=== PATIENT | female | born 2000 | race Caucasian/White ===

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

== ENCOUNTER 2019-12-22 14:00 | Inpatient (IN) ==
[2019-12-22] MEDS ORDERED: BUTORPHANOL TARTRATE 2 MG/ML VIAL IV PRN ×2 (14:49)
[2019-12-22] MEDS ORDERED: ONDANSETRON 4 MG TAB.RAPDIS PO PRN (14:49)
[2019-12-22] MEDS ORDERED: RINGER'S SOLUTION,LACTATED 1,000 ML IV ONE (14:49)
[2019-12-22] MEDS ORDERED: RINGER'S SOLUTION,LACTATED 1,000 ML IV PRN (14:49)
[2019-12-22] MEDS ORDERED: OXYTOCIN/DEXTROSE 5%-WATER 30 UNITS/500 ML BAG IV ONE ×2 (14:49→22:03)
[2019-12-22] MEDS ORDERED: LIDOCAINE HCL 50 ML VIAL PERI PRN (14:49)
--- NOTE | 2019-12-22 15:05 | HP ---
Chief Complaint - Chief Complaint Date of Service: 12/22/19 Time of Service: 14:57 Chief Complaint: decreased movement History of Present Illness: 19 year old at 36w 6d who presented to triage complaining of decreased movement. She denied lof, vb or ctx. She denies [place] ROS[place], visual changes or abdominal pain Medical History (Last Reviewed 12/22/19 @ 14:59 by Nancy Schaefer MD) Chronic hypertension History of pre-eclampsia in prior , currently Surgical History: Surgical History (Last Reviewed 12/22/19 @ 15:00 by Nancy Schaefer MD) History of adenoidectomy Onset Date: Unknown History of salpingectomy Onset Date: ~06/11/10 right laparoscopic-right adnexal mass- Dr. Araujo Hx of tonsillectomy Onset Date: Unknown S/P tube myringotomy Onset Date: Unknown bilateral Family History: Family History (Last Reviewed 12/22/19 @ 15:00 by Nancy Schaefer MD) Father Cancer malignant mass Myocardial infarction Grandmother Cancer cervical cancer Social History: (Last Reviewed 12/22/19 @ 15:00 by Nancy Schaefer MD) Social History: adopted: No Marital status: Single household members: significant other, children number of children: 1 current occupational status: employed current occupation: flight teacher Highest education level completed: some college, no degree Service: No Tobacco: Smoking Status: Never smoker Alcohol: alcohol intake: never Substance Use: substance use type: does not use Dietary Habits: caffeine: Yes caffeine comment: 1 daily Type: coffee Exercise: frequency: 1-2 times per week Review Of Systems (GEN) - Review of Systems Generalized/Overall Review: Present: No Symptoms Reported Abdominal: Present: Other - decreased movement Misc: All systems neg except as marked Allergies/Adverse Reactions: Allergies Allergy/AdvReac Type Severity Reaction Status Date / Time No Known Allergies Allergy Verified 12/22/19 14:19 Home Medications: HOME MEDICATIONS nifedipine 90 mg tablet,extended release 90 mg PO DAILY #30 tab 08/13/19 [Last Taken 12/22/19 09:30] labetalol 100 mg tablet 200 mg PO TID #120 tab 12/06/19 [Last Taken 12/22/19 09:30] Vits96/Iron Fum/Folic [ S] 1 tab PO DAILY 12/22/19 [Last Taken 12/22/19 09:30] Exam - Exam Vital Signs: Vital Signs - Last Taken Temp 36.6 C 12/22/19 14:20 Pulse 106 H 12/22/19 14:20 Resp 14 12/22/19 14:20 BP 140/95 H 12/22/19 14:20 Pulse Ox 99 12/22/19 14:20 Constitutional: Present: Alert, Oriented x3, Cooperative, No distress ENT Exam: Present: hearing grossly normal Neck: Present: normal inspection Back Exam: Present: normal inspection, no CVA tenderness Breasts: Present: Exam deferred Respiratory: Present: lungs clear, normal breath sounds Cardiovascular/Chest: Present: regular rate, rhythm Abdomen: Present: soft, nontender, nondistended Extremity: Present: non-tender, no calf tenderness Skin Exam: Present: normal color, warm/dry, no cyanosis Appearance: Present: appropriate appearance, appropriate insight Eye contact: Present: cooperative, good eye contact, normal speech Thoughts: Present: normal thought pattern Assessment/Plan - Narrative Narrative: 19 year old at 36w 6d 1. Decreased movement: the patient presented for an NST and NST is nonreactive with late decelerations. Proceed with IOL due to non-reassuring FHT and chronic hypertension on medications. The patient was scheduled for IOL tomorrow morning so she has received steroids. 2. Chronic hypertension: pre-eclampsia labs on admission to L&D and UP:CR 3. GBS negative: prophylaxis not indicated
[2019-12-22 15:15] LABS: Hematocrit 33.2 % (37.0-47.0); Hemoglobin 10.5 gm/dL (12.5-16.0); Mean Corpuscular Hgb Conc 31.6 g/dl (32-36); Mean Platelet Volume 10.2 fl (8-12.5); Neutrophil # 11.4 K/mm3 (1.3-6.0); Neutrophil % 71.6 % (42-75.0); Platelet Count 333 K/mm3 (150-450); Red Blood Count 4.37 M/mm3 (4.2-5.4); Red Cell Distribution Width 14.7 % (11.5-14.0); White Blood Count 15.9 K/mm3 (4.0-10.5)
[2019-12-22 15:20] LABS: Albumin * 2.7 gm/dl (3.4-5.0); BUN/Creatinine Ratio 17.9 (9.0-21.6); Bilirubin, Total 0.2 mg/dL (0.0-1.1); Ca. Corrected For Albumin 9.3 mg/dL (8.4-10.2); Calcium * 8.6 mg/dL (7.9-10.9); Carbon Dioxide 18.8 mmol/L (24-32.6); Potassium 3.8 mmol/L (3.4-4.6); Total Protein 6.9 gm/dL (6.2-8.2)
[2019-12-22] MEDS: LABETALOL HCL 100 MG TABLET PO SCH (15:34)
[2019-12-22 15:39] LABS: Random Urine Total Protein 47.8 mg/dL (0-12)
[2019-12-22] MEDS ORDERED: ACETAMINOPHEN 500 MG TABLET PO PRN (16:05)
--- NOTE | 2019-12-22 16:07 | PN ---
Progess Note - Interim Date: 12/22/19 Time: 16:05 Narrative: 12/22/19 16:05 The patient reports a headache. Tylenol 1000 mg PO ordered to be administered q8H PRN. The patient is otherwise asymptomatic Pre-eclampsia labs on admission to L&D show that the the patient has superimposed pre-eclampsia without severe features Bedrest Seizure precautions
[2019-12-22 16:29] LABS: Cocaine Ur Negative (NEGATIVE); Urine Barbiturate Negative (NEGATIVE); Urine Benzodiazepines Negative (NEGATIVE); Urine Opiates Negative (NEGATIVE); Urine PCP Negative (NEGATIVE); Urine THC Negative (NEGATIVE)
[2019-12-22] MEDS ORDERED: LABETALOL HCL 100 MG TABLET PO SCH (17:00)
--- NOTE | 2019-12-22 17:19 | PN ---
Jamison Note - Interim Date: 12/22/19 Time: 17:19 Narrative: 12/22/19 17:19 Patient comfortable without epidural cvx /-2 AROM for clear fluid FHT cat 1
[2019-12-22] MEDS ORDERED: ONDANSETRON HCL/PF 2 MG/ML VIAL IV PRN (17:50)
[2019-12-22] MEDS ORDERED: NALOXONE HCL 1 MG/1 ML SYRG IV PRN (17:50)
[2019-12-22] MEDS ORDERED: BUPIVACAINE HCL/0.9 % NACL/PF 250 ML EP PRN (17:50)
[2019-12-22] MEDS ORDERED: DEXTROSE 5%-LACTATED RINGERS 1,000 ML IV PRN (18:11)
--- NOTE | 2019-12-22 18:25 | ANES ---
Anesthesia Pre Procedure Eval Vitals/Labs: Last Vital Signs Temp 37.0 C 12/22/19 15:50 Pulse 98 12/22/19 15:50 Resp 20 12/22/19 15:50 BP 156/86 H 12/22/19 15:50 Pulse Ox 99 12/22/19 15:50 HOME MEDICATIONS nifedipine 90 mg tablet,extended release 90 mg PO DAILY #30 tab 08/13/19 [Last Taken 12/22/19 09:30] labetalol 100 mg tablet 200 mg PO TID #120 tab 12/06/19 [Last Taken 12/22/19 09:30] Vits96/Iron Fum/Folic [ S] 1 tab PO DAILY 12/22/19 [Last Taken 12/22/19 09:30] Allergies/Adverse Reactions: Allergies Allergy/AdvReac Type Severity Reaction Status Date / Time No Known Allergies Allergy Verified 12/22/19 14:19 - Planned Procedure Planned Procedure: Medical Induction Medication List Reviewed:: Yes Allergies Verified: Yes Medical History (Last Reviewed 12/22/19 @ 18:24 by Lm Orellana CRNA) Chronic hypertension History of pre-eclampsia in prior , currently Surgical History (Last Reviewed 12/22/19 @ 18:24 by Lm Orellana CRNA) History of adenoidectomy Onset Date: Unknown History of salpingectomy Onset Date: ~06/11/10 right laparoscopic-right adnexal mass- Dr. Araujo Hx of tonsillectomy Onset Date: Unknown S/P tube myringotomy Onset Date: Unknown bilateral Family History (Last Reviewed 12/22/19 @ 18:24 by Lm Orellana CRNA) Father Cancer malignant mass Myocardial infarction Grandmother Cancer cervical cancer - Family Anesthesia History Family History:: no untoward family reactions to anesthesia, no familial bleeding tendencies, no family history of clotting disorders, no family history of premature - Anesthesia Assessment and Plan ASA Class: PS, II Anesthesia Type Plan: Epidural
[2019-12-22] MEDS: BUPIVACAINE HCL/PF 30 ML VIAL EP SCH ×2 (18:52→19:26)
--- NOTE | 2019-12-22 18:56 | ANES ---
Anesthesia Procedure Note Procedure Note: ANESTHESIA PROCEDURE NOTE Date of Procedure: 12/22/2019. Time of procedure: 183. Performed by: Lm Orellana CRNA Document Controller: None. Preprocedure diagnosis: Active labor. Post procedure diagnosis: Same. Procedure: Insertion of labor epidural. Indications: The patient is a 19-year-old female in active labor requesting labor epidural for pain management. Findings: See below. Details of the procedure: The patient was placed in a sitting position. DuraPrep as well as Betadine swabs X3 was applied to the patient's back. Patient was then draped in a sterile fashion. Lidocaine 1% was infiltrated to the skin and subcutaneous tissues at the level of the L3-4 interspace. The epidural space was identified using a 18-gauge Tuohy needle with [id number] technique. Epidural catheter was inserted to a depth of 15 centimeters at skin. Negative test dose was elicited using 3 mL of 1.5% preservative-free lidocaine plus epinephrine 1 200,000. The epidural catheter was then taped and secured in place. A loading dose of 8 mL of 0.25% preservative-free bupivacaine was administered to the epidural catheter after negative aspiration for blood and CSF. EBL: Minimal. Fluids: N/A. Specimen: N/A. Post procedure condition: The patient tolerated the procedure well. No complications were noted. Thank you for this consultation. Lm Orellana CRNA
--- NOTE | 2019-12-22 18:56 | ANES ---
Post Anesthesia Assessment - Vital Signs Vitals: Last Vital Signs Temp 37.0 C 12/22/19 18:54 Pulse 84 12/22/19 18:54 Resp 18 12/22/19 18:54 BP 139/80 12/22/19 18:54 Pulse Ox 98 12/22/19 18:54 Airway Patency: Normal - Mental Status Level Of Consciousness: Awake - N/V Assessment Nausea/Vomiting Presence: None Dehydration:: No
[2019-12-22] MEDS ORDERED: LIDOCAINE HCL/EPINEPHRINE 20 ML VIAL IJ ONE (19:00)
[2019-12-22] MEDS ORDERED: BUPIVACAINE HCL/PF 10 ML VIAL IJ ONE (19:00)
--- NOTE | 2019-12-22 19:34 | ANES ---
Post Anesthesia Assessment - Vital Signs Vitals: Last Vital Signs Temp 37.0 C 12/22/19 18:54 Pulse 84 12/22/19 19:29 Resp 18 12/22/19 19:29 BP 140/81 H 12/22/19 19:29 Pulse Ox 100 12/22/19 19:29 Airway Patency: Normal - Mental Status Level Of Consciousness: Awake - N/V Assessment Nausea/Vomiting Presence: None Dehydration:: No
--- NOTE | 2019-12-22 19:34 | ANES ---
Anesthesia Procedure Note Procedure Note: ANESTHESIA PROCEDURE NOTE Date of Procedure: 12/22/2019. Time of procedure: 1914. Performed by: Lm Orellana CRNA Radio Operator: None. Preprocedure diagnosis: Active labor unrelieved by labor epidural. Post procedure diagnosis: Same. Procedure: Removal and reinsertion of labor epidural. Indications: The patient is a 19-year-old female in active labor requesting labor epidural for pain management. Findings: See below. Details of the procedure: Patient was complaining of labor pain despite indwelling labor epidural. The epidural catheter was dosed with 10 mL's of 2% preservative-free lidocaine plus epinephrine 1-200,000. Patient experienced episode of tinnitus after injection. No blood was noted upon aspiration of the epidural catheter pre-and post injection. The epidural catheter was removed intact. DuraPrep as well as Betadine swabs X3 was applied to the patient's back. Patient was then draped in a sterile fashion. Lidocaine 1% was infiltrated to the skin and subcutaneous tissues at the level of the L3-4 interspace. The epidural space was identified using a 18-gauge Tuohy needle with [id number] technique. Epidural catheter was inserted to a depth of 15 centimeters at skin. Negative test dose was elicited using 3 mL of 1.5% preservative-free lidocaine plus epinephrine 1 200,000. The epidural catheter was then taped and secured in place. A loading dose of 8 mL of 0.25% preservative-free bupivacaine was administered to the epidural catheter after negative aspiration for blood and CSF. EBL: Minimal. Fluids: N/A. Specimen: N/A. Post procedure condition: The patient tolerated the procedure well. No complications were noted. Thank you for this consultation. Lm Orellana CRNA
[2019-12-22] MEDS ORDERED: CARBOPROST TROMETHAMINE 250 MCG/ML AMPUL IM ONE ×2 (21:47→22:16)
[2019-12-22] MEDS ORDERED: BENZOCAINE/MENTHOL 81 SPRAY CAN TP PRN (22:03)
[2019-12-22] MEDS ORDERED: HYDROCORTISONE 30 APPL TUBE TP PRN (22:03)
[2019-12-22] MEDS ORDERED: SENNOSIDES 8.6 MG TABLET PO PRN (22:03)
[2019-12-22] MEDS ORDERED: BISACODYL 10 MG SUPP.RECT RC PRN (22:03)
[2019-12-22] MEDS ORDERED: HYDROcodone/ACETAMINOPHEN 1 EACH TABLET PO PRN ×2 (22:03)
[2019-12-22] MEDS ORDERED: diphenhydrAMINE HCL 25 MG CAPSULE PO PRN (22:03)
[2019-12-22] MEDS ORDERED: GLYCERIN/WITCH HAZEL LEAF 40 APPL BOX TP PRN (22:03)
--- NOTE | 2019-12-22 22:03 | OR ---
Operative Report - Dictated Report Narrative: Date of delivery: 12/22/2019 Time of delivery: 2134 Gender: male weight: 3499 grams APGARS: 8/9 Procedure: Description of the procedure: The patient is a 19 year old at 36w 6d who presented to labor and delivery with decreased movement. She had a nonreactive NST and late decelerations and a decision was made to proceed with IOL. The patient is a CHTN and on admission to L&D laboratory workup was consistent with CHTN with superimposed pre-eclampsia without severe features. She was started on pitocin. AROM was performed. She progressed to complete dilation. She delivered a viable male infant in TU presentation. The shoulders delivered without difficulty followed by the rest of the infant. Cord clamping was delayed for 30 seconds. The cord was clamped and cut with the on the maternal abdomen. The placenta was delivered by expression and appeared intact. After delivery of the placenta brisk vaginal bleeding ensued. Cytotec 1000 mcg was placed rectally. The fundus was also massaged while pitocin was being infused as well. A vaginal examination was performed and only one small clot was present so a manual uterine exploration was not undertaken. The bleeding continued and thus a dose of hemabate was administered as well. A first degree vaginal laceration was noted and it was not repaired as it was hemostatic. EBL: 450 mL Complications: none Specimens: placenta, cord gases History for MU Definition: * The number of deliveries resulting in a live the patient experienced prior to current hospitalization * The previous delivery of live twins or any live multiple gestation is considered one live event. *If primagravida or nulliparous is documented select zero for the number of previous live births. Live Events: 1
[2019-12-22] MEDS ORDERED: MISOPROSTOL 200 MCG TABLET PO ONE (22:15)
[2019-12-23] MEDS: LABETALOL HCL 100 MG TABLET PO SCH ×4 (00:19→22:49)
[2019-12-23] MEDS: IBUPROFEN 800 MG TABLET PO PRN ×2 (00:20→06:37)
[2019-12-23] MEDS: PRENATAL VITS96/IRON FUM/FOLIC 1 TAB TABLET PO SCH (08:35)
[2019-12-23] MEDS: DOCUSATE SODIUM 100 MG CAPSULE PO SCH ×2 (08:35→22:49)
[2019-12-23] MEDS: NIFEdipine 30 MG TAB.SR.24H PO SCH (08:35)
[2019-12-23] MEDS ORDERED: LABETALOL HCL 100 MG TABLET PO SCH (09:00)
--- NOTE | 2019-12-23 09:03 | PN ---
Subjective - Date and Time Seen Date: 12/23/19 Time: 09:02 Subjective Narrative: Patient without complaints Objective Objective Narrative: See vital signs - Review of Systems Generalized/Overall Review: Reports: No Symptoms Reported Misc: All systems neg except as marked - Vitals Vitals: Last Vital Signs Temp 36.6 C 12/23/19 06:50 Pulse 74 12/23/19 08:35 Resp 16 12/23/19 06:50 BP 132/78 12/23/19 08:35 Pulse Ox 100 12/23/19 06:50 - Abnormal Lab Findings Abnormal Lab Findings: Abnormal Lab Results 12/22/19 12/22/19 12/22/19 Range/Units 14:58 14:58 15:25 WBC 15.9 H (4.0-10.5) K/mm3 Hgb 10.5 L (12.5-16.0) gm/dL Hct 33.2 L (37.0-47.0) % MCV 76.0 L (78-100) fl MCH 24.0 L (27-31) pg MCHC 31.6 L (32-36) g/dl RDW 14.7 H (11.5-14.0) % Immature Gran % (Auto) 0.70 H (0.001-0.429) % Immature Gran # (Auto) 0.11 H (0.000-0.0310) K/mm3 Neutrophils # 11.4 H (1.3-6.0) K/mm3 Carbon Dioxide 18.8 L (24-32.6) mmol/L Anion Gap 16.0 H (6.8-13.8) mmol/L Alkaline Phosphatase 183 H (50-170) U/L Albumin 2.7 L (3.4-5.0) gm/dl U Random Total Protein 47.8 H (0-12) mg/dL U [place] Prot/Creat Ratio 325 H (0-199) mg/gm - Exam Constitutional: Present: Alert, Oriented x3, Cooperative, No distress ENT Exam: Present: hearing grossly normal Abdomen: Present: soft, nontender, nondistended - fundus is firm Extremity: Present: non-tender, no calf tenderness Skin Exam: Present: normal color, warm/dry, no cyanosis Appearance: Present: appropriate appearance Eye contact: Present: cooperative, good eye contact, normal speech Thoughts: Present: normal thought pattern Cauti Physician Documentation - Urinary Catheter Management Urethral ([place]) Urethral Indwelling: No Date of Insertion: 12/22/19 Time of Insertion: 19:50 Date of Removal: 12/22/19 Time of Removal: 21:30 Assessment/Plan Plan Narrative: PPD 1 s/p Doing well Discharge tomorrow
--- NOTE | 2019-12-24 09:03 | PN ---
Subjective - Date and Time Seen Date: 12/24/19 Time: 09:01 Subjective Narrative: Patient without complaints Objective Objective Narrative: See vital signs - Review of Systems Generalized/Overall Review: Reports: No Symptoms Reported Misc: All systems neg except as marked - Vitals Vitals: Last Vital Signs Temp 36.5 C 12/23/19 14:36 Pulse 84 12/24/19 01:30 Resp 18 12/24/19 01:30 BP 138/75 12/24/19 01:30 Pulse Ox 99 12/24/19 01:30 - Exam Constitutional: Present: Alert, Oriented x3, Cooperative, No distress ENT Exam: Present: hearing grossly normal Abdomen: Present: soft, nontender, nondistended Extremity: Present: non-tender, no calf tenderness Skin Exam: Present: normal color, warm/dry, no cyanosis Appearance: Present: appropriate appearance Eye contact: Present: cooperative, good eye contact, normal speech Thoughts: Present: normal thought pattern Cauti Physician Documentation - Urinary Catheter Management Urethral ([place]) Urethral Indwelling: No Date of Insertion: 12/22/19 Time of Insertion: 19:50 Date of Removal: 12/22/19 Time of Removal: 21:30 Assessment/Plan Plan Narrative: PPD 2 s/p Doing well Discharge today Detailed discharge instructions given Follow-up in 2 weeks for a BP check or sooner for any other concerns
[2019-12-24] MEDS: DOCUSATE SODIUM 100 MG CAPSULE PO SCH (09:32)
[2019-12-24] MEDS: PRENATAL VITS96/IRON FUM/FOLIC 1 TAB TABLET PO SCH (09:33)
[2019-12-24] MEDS: LABETALOL HCL 100 MG TABLET PO SCH (09:33)
[2019-12-24] MEDS: NIFEdipine 30 MG TAB.SR.24H PO SCH (09:34)
[2019-12-24 09:37] VITALS: BP 132/69
== END 2019-12-24 13:00 | disposition home or self-care (01) | DRG 768 ==
LOC: OBCLINIC 14:00 → OB 14:48 → MS 12-23 17:01
PROVIDERS: ADMIT Obstetrics & Gynecology; ATTEND Obstetrics & Gynecology
CPT/HCPCS: 36415; 59025; 80053; 80307; 82570; 84155; 84156; 85025; 86850; 86870; 87086; 88307; 88888